=== PATIENT | male | born 1975 ===

== ENCOUNTER 2020-08-25 11:39 | Emergency (ER) | payer MEDICAID, SELFPAY ==
--- NOTE | ~2020-08-25 | XR_ITS ---
EXAMINATION: XR CHEST CLINICAL INFORMATION: Chest pain. COMPARISON: None TECHNIQUE: Frontal view of the chest was obtained. FINDINGS: No significant abnormality is noted involving the heart, lungs, mediastinum, bony thorax or soft tissues. XR/XR chest 1V IMPRESSION: Unremarkable chest exam.
[2020-08-25 11:47] VITALS: BP 131/84; PULSE 95; RESP 18; TEMP 37.1; O2SAT 97; BMI 30.9
--- NOTE | 2020-08-25 11:48 | ECG_ITS ---
Test Reason : CP Blood Pressure : / mmHG Vent. Rate : 090 BPM Atrial Rate : 090 BPM P-R Int : 120 ms QRS Dur : 092 ms QT Int : 358 ms P-R-T Axes : 067 039 038 degrees QTc Int : 437 ms Normal sinus rhythm Normal ECG No previous ECGs available Referred By: Generic ED Physician Electronically Signed By:OMAR GUTIERRES MD
[2020-08-25 12:06] LABS: MANUAL DIFF FLAG NO
[2020-08-25 12:07] LABS: Basophils Absolute Auto 0.1 X10*3/uL (0.0-0.2); Basophils Percent Auto 0.9 % (0-2); Eosinophils Absolute Auto 0.2 X10*3/uL (0.0-0.4); Eosinophils Percent Auto 3.3 % (0-4); Hematocrit 45.5 % (42-52); Hemoglobin 15.2 g/dl (14.0-18.0); Imm Gran Abs Auto 0.03 X10*3/uL (0.00-0.03); Imm Gran Pct Auto 0.5 % (0.0-0.4); Lymphocytes Absolute Auto 1.8 X10*3/uL (1.2-4.9); Lymphocytes Percent Auto 31.5 % (20-40); Mean Corpuscular HGB Conc 33.4 g/dl (31.0-36.0); Mean Corpuscular Hemoglobin 31.1 pg (27.0-33.0); Mean Corpuscular Volume 93.2 fL (80-98); Mean Platelet Volume 9.8 fL (9.4-12.4); Monocytes Absolute Auto 0.5 X10*3/uL (0.1-1.2); Monocytes Percent Auto 9.3 % (2-11); Neutrophils Absolute Auto 3.2 X10*3/uL (2.0-8.3); Neutrophils Percent Auto 54.5 % (45-73); Platelet Count 254 X10*3/uL (160-400); Red Blood Count 4.88 X10*6/uL (4.60-5.80); Red Cell Distribution Width 13.2 % (11.0-16.0); White Blood Count 5.8 X10*3/uL (4.8-10.8)
[2020-08-25 12:39] LABS: Anion Gap 15 (12-20); Blood Urea Nitrogen 8 mg/dL (9-16); Calcium 9.2 mg/dL (8.4-10.2); Carbon Dioxide 22 mmol/L (22-29); Chloride 109 mmol/L (96-108); Creatinine Clr Calc Pharmacy 133.1; Estimated Glomerular Filt Rate > 60; Glucose Random 138 mg/dL (60-115); Potassium 3.8 mmol/L (3.3-5.1); Sodium 142 mmol/L (135-145)
[2020-08-25 12:45] LABS: Troponin-I High Sensitivity < 3.5 ng/L (<3.5-35.0)
[2020-08-25 13:20] VITALS: PULSE 75
[2020-08-25 13:24] VITALS: BP 119/84; PULSE 77; RESP 12; TEMP 36.9; O2SAT 98
--- NOTE | 2020-08-25 13:50 | ED.CHESTPAIN ---
HPI - Chest Pain General Chief Complaint: Chest Pain Stated Complaint: CHEST PAIN Time Seen by Provider: 08/25/20 13:25 Source: patient Mode of arrival: ambulatory Limitations: no limitations History of Present Illness HPI narrative: 45-year-old male who presents emergency department for evaluation of chest pain which started yesterday. Patient states yesterday at around 9:00 a.m. he was at work when he had a sudden onset left-sided chest pressure. He points to his left anterior chest when asked to localize the pain. States the pain is a constant, tightness/squeezing sensation. The pain is worse with movement and with breathing. He states that the pain got worse this morning. He also states he has been having pain in his left arm for about 1 week. He describes the arm pain is a tightness. He denies any neck pain or back pain. He denies associated shortness of breath, dyspnea on exertion, cough, fever or chills. States he does feel fatigued. Denies pain or swelling in his lower extremities. The patient states that he drove to [place] over the weekend (4 days prior to evaluation). He states that it is a [address]. Related Data Allergies Allergy/AdvReac Type Severity Reaction Status Date / Time No Known Allergies Allergy Unverified 12/24/19 16:30 [No Known Allergies*] Review of Systems Review of Systems: Yes all other systems are reviewed and are negative [facility] Past Medical History [facility] Narrative: Patient has a history of fatty liver, he has had a hernia repair in the past. He occasionally takes tramadol for abdominal pain. He smokes 1/2 pack of cigarettes per day times 22 years. He drinks alcohol on the weekends. He states that he smokes marijuana 1-2 times per day. Social History Social History Alcohol intake: never Smoking Status: Current every day smoker Use of substances other than those prescribed or required for medical reasons: Yes Substance Use Type: Marijuana Last Used Substance: Hours (ago) Advance Directives: No Advance Directives Information Provided: Yes Physical Exam Vital Signs: Vital Signs: Last Vital Signs Temp 98.4 F 08/25/20 13:24 Pulse 75 08/25/20 14:51 Resp 14 08/25/20 14:51 BP 126/87 08/25/20 14:51 Pulse Ox 98 08/25/20 14:51 Body Mass Index 30.9 Const: General: cooperative Orientation/consciousness: oriented to person and oriented to place Limitations: no limitations HENMT: Head: Yes normal to inspection, Yes normocephalic and Yes atraumatic Ears: external ears normal General nose exam: Normal external nose present Face and sinus: Yes normal facial exam Mouth: Normal oral and palatal mucosa present Throat: Yes posterior oropharynx normal Eyes: Periorbital: periorbital findings normal Eyelids: Yes eyelids normal Conjunctivae: conjunctivae normal Sclerae: sclerae normal Corneas: corneas normal Pupils: Equal, round and reactive pupils present Direct Ophthalmoscopy: normal light reflex Neck: Neck: Yes full ROM, Yes no lymphadenopathy, Yes no meningeal signs, Yes trachea midline and Yes supple Chest: Chest palpation & inspection: normal inspection of the chest and tenderness (Left anterior chest along costochondral joints) Resp: Effort & Inspection: normal respiratory effort and able to speak in complete sentences Auscultation: clear to auscultation bilaterally Cardio: Rate: regular rate Rhythm: regular rhythm Heart sounds: S1 normal heart sound present, S2 normal heart sound present and no murmurs GI: Inspection: Yes normal to inspection Palpation (GI): Soft to palpation, nontender, no guarding, not rigid and No hepatosplenomegaly present : General: Yes no CVA tenderness Back/Spine/Pelvis: Back: no CVA tenderness Cervical Spine: normal cervical lordosis Thoracic/Lumbar Spine: thoracic and lumbar spine normal to inspection Skin: Lesions: no lesions Rashes: no rashes Wounds: no wounds Neuro: General: oriented to person, oriented to place and no meningeal signs Cranial nerves: Yes CN's II-XII intact bilaterally and Yes Equal, round and reactive pupils present Cognition (Neuro): normal cognition Motor exam (neuro): 5/5 motor strength present throughout Extrem: General: Yes normal to inspection and Yes full ROM Psych: Appearance: well kempt Mental Status: mental status grossly normal Speech and movement: Normal speech and movement present Affect: normal affect Attitude: cooperative Thought process: Normal thought process present Thought content: Normal thought content present Course Course Course Narrative: 45-year-old male who presents emergency department for evaluation of left-sided chest pain x1 day and left arm pain x1 week. The patient did travel to [place] over the weekend which is a [address] Vital signs were normal with no tachycardia, tachypnea and a normal O2 saturation of 99% on room air. Physical examination did reveal left chest wall tenderness along the costochondral joints. Exam was otherwise unremarkable. I ordered a cardiac workup and D-dimer on the patient. He is ordered to get Toradol 30 mg IV for his pain. 1357: Laboratory evaluation revealed a normal CBC and CMP with only an elevated glucose of 138. Troponin was below detectable limits. Chest x-ray revealed no acute process. Twelve EKG was unremarkable. D-dimer was not elevated. 1542: The patient is feeling significantly better after receiving the Toradol. Patient's presentation and evaluation is consistent with costochondritis. Patient was advised to take Tylenol and ibuprofen for pain. He was given a note not return to work until 08/30/2020 MDM - Chest Pain Lab Data Result diagrams: 08/25/20 12:00 08/25/20 12:00 Labs: Lab Results 08/25/20 08/25/20 08/25/20 Range/Units 12:00 12:00 12:00 WBC 5.8 (4.8-10.8) X10*3/uL RBC 4.88 (4.60-5.80) X10*6/uL Hgb 15.2 (14.0-18.0) g/dl Hct 45.5 (42-52) % MCV 93.2 (80-98) fL MCH 31.1 (27.0-33.0) pg MCHC 33.4 (31.0-36.0) g/dl RDW 13.2 (11.0-16.0) % Plt Count 254 (160-400) X10*3/uL MPV 9.8 (9.4-12.4) fL Immature Gran % (Auto) 0.5 H (0.0-0.4) % Neut % (Auto) 54.5 (45-73) % Lymph % (Auto) 31.5 (20-40) % [place] % (Auto) 9.3 (2-11) % Eos % (Auto) 3.3 (0-4) % Baso % (Auto) 0.9 (0-2) % Lymph # (Auto) 1.8 (1.2-4.9) X10*3/uL [place] # (Auto) 0.5 (0.1-1.2) X10*3/uL Eos # (Auto) 0.2 (0.0-0.4) X10*3/uL Baso # (Auto) 0.1 (0.0-0.2) X10*3/uL Abs Immat Gran (auto) 0.03 (0.00-0.03) X10*3/uL Absolute Neuts (auto) 3.2 (2.0-8.3) X10*3/uL Absolute Nucleated RBC 0.000 (0.0-0.012) X10*3/uL Nucleated RBC % (auto) 0.0 (0.0-0.2) /100WBC D-Dimer < 200 NG/ML Hold Blue Top SEE NOTE Sodium 142 (135-145) mmol/L Potassium 3.8 (3.3-5.1) mmol/L Chloride 109 H (96-108) mmol/L Carbon Dioxide 22 (22-29) mmol/L Anion Gap 15 (12-20) BUN 8 L (9-16) mg/dL Creatinine 0.84 (0.5-1.4) mg/dL Estim Creat Clear Calc 133.1 Estimated GFR > 60 Random Glucose 138 H (60-115) mg/dL Calcium 9.2 (8.4-10.2) mg/dL Troponin I High Sens (<3.5-35.0) ng/L 08/25/20 Range/Units 12:00 WBC (4.8-10.8) X10*3/uL RBC (4.60-5.80) X10*6/uL Hgb (14.0-18.0) g/dl Hct (42-52) % MCV (80-98) fL MCH (27.0-33.0) pg MCHC (31.0-36.0) g/dl RDW (11.0-16.0) % Plt Count (160-400) X10*3/uL MPV (9.4-12.4) fL Immature Gran % (Auto) (0.0-0.4) % Neut % (Auto) (45-73) % Lymph % (Auto) (20-40) % [place] % (Auto) (2-11) % Eos % (Auto) (0-4) % Baso % (Auto) (0-2) % Lymph # (Auto) (1.2-4.9) X10*3/uL [place] # (Auto) (0.1-1.2) X10*3/uL Eos # (Auto) (0.0-0.4) X10*3/uL Baso # (Auto) (0.0-0.2) X10*3/uL Abs Immat Gran (auto) (0.00-0.03) X10*3/uL Absolute Neuts (auto) (2.0-8.3) X10*3/uL Absolute Nucleated RBC (0.0-0.012) X10*3/uL Nucleated RBC % (auto) (0.0-0.2) /100WBC D-Dimer NG/ML Hold Blue Top Sodium (135-145) mmol/L Potassium (3.3-5.1) mmol/L Chloride (96-108) mmol/L Carbon Dioxide (22-29) mmol/L Anion Gap (12-20) BUN (9-16) mg/dL Creatinine (0.5-1.4) mg/dL Estim Creat Clear Calc Estimated GFR Random Glucose (60-115) mg/dL Calcium (8.4-10.2) mg/dL Troponin I High Sens < 3.5 (<3.5-35.0) ng/L ECG Data ECG #1: Attestation: I personally reviewed and interpreted this ECG as follows: Interpretation: 1154: Normal sinus rhythm rate of 90, normal ND QRS and QTC intervals, no ST segment elevation, no ST segment depression, no T-wave abnormalities. This is a normal EKG. No old EKG for comparison Discharge Plan Discharge Clinical Impression: Acute costochondritis Patient Disposition: Home, Self-Care Instructions: Costochondritis (ED) Additional Instructions: Your laboratory evaluation was unremarkable. Your chest x-ray was normal. EKG was normal. Your chest pain is consistent with inflammation of the joints of your chest (costochondritis). Take ibuprofen 200 mg pills, 3 pills every 6 hours as needed for pain. Take Tylenol (acetaminophen) 500 mg pills, 2 pills every 6 hours as needed for pain. Follow-up with your doctor in 2 days. Please return to the emergency department if your symptoms get worse or if you develop any symptoms that are concerning to you. Stand Alone Forms: Work/School Release
[2020-08-25 14:06] LABS: D Dimer < 200 NG/ML
[2020-08-25 14:51] VITALS: BP 126/87; PULSE 75; RESP 14; O2SAT 98
[2020-08-25] MEDS: Ketorolac Tromethamine 30 MG/ML VIAL IVPUSH (14:52)
== END 2020-08-25 15:53 | disposition home or self-care (01) ==
PROVIDERS: Emergency Provider Emergency Medicine Emergency Medical Services; PCP Radiology Diagnostic Radiology
DX: M94.0 Chondrocostal junction syndrome [Tietze] (principal); F17.210 Nicotine dependence, cigarettes, uncomplicated; F12.90 Cannabis use, unspecified, uncomplicated
CPT/HCPCS: 36415; 71045; 80048; 84484; 85025; 85379; 93005; 96374; 99284; 99285; J1885

== ENCOUNTER → 2020-10-13 13:36 | Outpatient (BNVA) | payer MEDICAID, SELFPAY | PROVIDERS: PCP Internal Medicine; Visit Provider Internal Medicine Gastroenterology | DX: K76.0 Fatty (change of) liver, not elsewhere classified (principal); R10.9 Unspecified abdominal pain | CPT/HCPCS: 99212 ==

== ENCOUNTER 2020-11-22 11:03 | Emergency (ER) | payer MEDICAID, SELFPAY ==
--- NOTE | ~2020-11-22 | CT_ITS ---
EXAMINATION: CT ABDOMEN AND PELVIS WITHOUT CONTRAST CLINICAL INFORMATION: Right upper quadrant and flank pain; question renal calculus. COMPARISON: Abdominal ultrasound dated 09/21/2019; CT abdomen and pelvis dated 04/06/2019. TECHNIQUE: Multidetector volumetric imaging was performed from the superior aspect of the liver through the pubic symphysis. Sagittal and coronal reformatted images were obtained on the technologist's workstation. This CT examination was performed using dose optimization techniques as appropriate, variously including the following: *Automated exposure control *Adjustment of mA and/or kV according to patient size (this includes techniques or standardized protocols for targeted exams where dose is matched to indication/reason for exam; i.e. extremities or head) *Use of iterative reconstruction technique DLP: 554 mGy-cm FINDINGS: LUNG BASES: The visualized lung bases are unremarkable. LIVER, GALLBLADDER, AND BILIARY TREE: The liver is normal in size, shape, and attenuation. There is a Jarret's lobe configuration. No focal hepatic lesion or biliary ductal dilatation is present. The gallbladder is unremarkable with no evidence of radiopaque gallstones, gallbladder wall thickening, or obvious pericholecystic inflammatory changes. PANCREAS: Unremarkable. SPLEEN: Unremarkable. ADRENAL GLANDS: Unremarkable. KIDNEYS AND URETERS: The kidneys are normal in size, shape, and attenuation. No hydronephrosis, hydroureter, or calculi seen. No perinephric stranding. BLADDER: Unremarkable. GASTROINTESTINAL TRACT: There is mild diverticulosis, without acute diverticulitis. No bowel obstruction, free intraperitoneal air or abscess is seen. The vermiform appendix appears normal. No focal bowel wall thickening is seen. ABDOMINAL WALL: There is a tiny fat-containing umbilical hernia. There is a small fat-containing left inguinal hernia. LYMPH NODES: There are shotty, nonpathologically enlarged mesenteric, bilateral iliac chain and inguinal lymph nodes. No sizable abdominopelvic lymphadenopathy is seen. VASCULAR: Unremarkable. PELVIC VISCERA: Unremarkable. OSSEOUS STRUCTURES: There is a rudimentary T12 right rib (2:14 and 4:75). No T12 left rib is seen. There are 5 lumbar type vertebra which do not bear any rib. At L4-L5, there is degenerative disc disease, with vacuum phenomenon. There is a rudimentary disc space at L5-S1. There is mild anterior spondylosis of the L3 upper endplate. No acute or aggressive osseous abnormality is seen. CT/CT abdomen pelvis wo con IMPRESSION: 1. No urinary calculus or obstructive uropathy is seen bilaterally. 2. There is mild diverticulosis, without acute diverticulitis. No bowel obstruction, free intraperitoneal air or abscess is seen. There is no appendicitis. 3. No abdominopelvic mass, free fluid or lymphadenopathy is seen. 4. There is degenerative disc disease at L4-L5. 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
[2020-11-22 11:52] VITALS: BP 126/80; PULSE 67; RESP 18; TEMP 37.1; O2SAT 100; BMI 27.0
[2020-11-22 14:15] LABS: MANUAL DIFF FLAG NO
[2020-11-22 14:17] LABS: Basophils Absolute Auto 0.1 X10*3/uL (0.0-0.2); Basophils Percent Auto 0.8 % (0-2); Eosinophils Absolute Auto 0.1 X10*3/uL (0.0-0.4); Eosinophils Percent Auto 1.8 % (0-4); Hematocrit 44.8 % (42-52); Hemoglobin 14.7 g/dl (14.0-18.0); Imm Gran Abs Auto 0.02 X10*3/uL (0.00-0.03); Imm Gran Pct Auto 0.3 % (0.0-0.4); Lymphocytes Absolute Auto 2.3 X10*3/uL (1.2-4.9); Lymphocytes Percent Auto 30.7 % (20-40); Mean Corpuscular HGB Conc 32.8 g/dl (31.0-36.0); Mean Corpuscular Hemoglobin 31.7 pg (27.0-33.0); Mean Corpuscular Volume 96.6 fL (80-98); Mean Platelet Volume 10.1 fL (9.4-12.4); Monocytes Absolute Auto 0.7 X10*3/uL (0.1-1.2); Monocytes Percent Auto 9.5 % (2-11); Neutrophils Absolute Auto 4.3 X10*3/uL (2.0-8.3); Neutrophils Percent Auto 56.9 % (45-73); Platelet Count 219 X10*3/uL (160-400); Red Blood Count 4.64 X10*6/uL (4.60-5.80); Red Cell Distribution Width 13.1 % (11.0-16.0); White Blood Count 7.6 X10*3/uL (4.8-10.8)
--- NOTE | 2020-11-22 14:29 | ED.ABDPAIN ---
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 Patient was seen by abrasive band winder last month plan to have CT scan in next month. Patient denies any vomiting or diarrhea complaining of chronic nausea no urinary complaints no fever or chills no relation with food pain radiated from the right upper quadrant to right flank area Related Data Previous Rx's Medication Instructions Recorded tramadol 50 mg tablet 50 mg PO Q6H PRN #20 tab 11/22/20 Allergies Allergy/AdvReac Type Severity Reaction Status Date / Time No Known Allergies Allergy Verified 10/13/20 13:45 [No Known Allergies*] Review of Systems Review of Systems Yes all other systems are reviewed and are negative Physical Exam Vital Signs: Vital Signs: Last Vital Signs Temp 98.7 F 11/22/20 11:52 Pulse 67 11/22/20 11:52 Resp 16 11/22/20 15:04 BP 126/80 11/22/20 11:52 Pulse Ox 100 11/22/20 11:52 Body Mass Index 27.0 Appearance: Alert. Oriented X3. No acute distress. Eyes: PERRLA, No Nystagmus ENT: Pharynx normal. Oral Mucosa moist Neck: Normal inspection. Neck supple. CVS: Normal heart rate and rhythm. Pulses normal. Respiratory: No respiratory distress. Equal air entry bilateral, no wheezing/rales/rhonchi Abdomen: Soft and tender right upper quadrant no rebound tenderness or guarding, Bowel sounds are present, no mass palpable, right CVA tenderness + Skin: Skin warm and dry. Normal skin color. Normal skin turgor. Extremities: No lower extremity edema. No calf tenderness Neuro: Oriented X 3. No motor deficit. No sensory deficit.No cerebellar signs , cranial nerves II-XII intact MDM - Abdominal Pain MDM Narrative Medical decision making narrative: Patient with nonspecific right upper quadrant pain previous ultrasound negative for gallstones with new CT scan to rule out any new pathology as per abrasive band winder labs are stable , LFTs are normal CT scan abdomen is negative will discharge patient home Medical Records Attestation: I reviewed the patient's medical records. Lab Data Attestation: I reviewed the patient's lab results. Result diagrams: 11/22/20 14:05 11/22/20 14:05 Labs: Lab Results 11/22/20 11/22/20 Range/Units 14:05 14:05 WBC 7.6 (4.8-10.8) X10*3/uL RBC 4.64 (4.60-5.80) X10*6/uL Hgb 14.7 (14.0-18.0) g/dl Hct 44.8 (42-52) % MCV 96.6 (80-98) fL MCH 31.7 (27.0-33.0) pg MCHC 32.8 (31.0-36.0) g/dl RDW 13.1 (11.0-16.0) % Plt Count 219 (160-400) X10*3/uL MPV 10.1 (9.4-12.4) fL Immature Gran % (Auto) 0.3 (0.0-0.4) % Neut % (Auto) 56.9 (45-73) % Lymph % (Auto) 30.7 (20-40) % [place] % (Auto) 9.5 (2-11) % Eos % (Auto) 1.8 (0-4) % Baso % (Auto) 0.8 (0-2) % Lymph # (Auto) 2.3 (1.2-4.9) X10*3/uL [place] # (Auto) 0.7 (0.1-1.2) X10*3/uL Eos # (Auto) 0.1 (0.0-0.4) X10*3/uL Baso # (Auto) 0.1 (0.0-0.2) X10*3/uL Abs Immat Gran (auto) 0.02 (0.00-0.03) X10*3/uL Absolute Neuts (auto) 4.3 (2.0-8.3) X10*3/uL Absolute Nucleated RBC 0.000 (0.0-0.012) X10*3/uL Nucleated RBC % (auto) 0.0 (0.0-0.2) /100WBC Sodium 139 (135-145) mmol/L Potassium 5.1 D (3.3-5.1) mmol/L Chloride 106 (96-108) mmol/L Carbon Dioxide 23 (22-29) mmol/L Anion Gap 15 (12-20) BUN 10 (9-16) mg/dL Creatinine 0.82 (0.5-1.4) mg/dL Estim Creat Clear Calc 123.7 Estimated GFR > 60 Random Glucose 90 (60-115) mg/dL Calcium 9.6 (8.4-10.2) mg/dL Total Bilirubin 0.2 (0.0-1.0) mg/dL Direct Bilirubin 0.2 (0.0-0.5) mg/dL AST 29 (5-37) U/L ALT 28 (0-40) U/L Alkaline Phosphatase 93 (39-117) U/L Total Protein 7.8 (6.5-8.0) g/dL Albumin 4.6 (3.5-5.0) g/dL Lipase 31 (8-78) U/L Discharge Plan Discharge Clinical Impression: Abdominal pain Qualifiers: Abdominal location: right upper quadrant Qualified Code(s): R10.11 - Right upper quadrant pain Patient Disposition: Home, Self-Care Instructions: Abdominal Pain (ED) Additional Instructions: Continue diet restrictions as advised. Follow-up with your abrasive band winder. A CT scan is negative for any acute pathology Tramadol for severe pain Prescriptions: New tramadol 50 mg tablet 50 mg PO Q6H PRN (Reason: pain) Qty: 20 RF: 0 Stand Alone Forms: Work/School Release PMFSH Past Medical History Surgical History H/O hernia repair Family History Family History Mother Diabetes Social History Social History Household Members: Spouse Alcohol intake: never Patient Tobacco Use Status: Current everyday Tobacco user Tobacco use type: Cigarette Use of substances other than those prescribed or required for medical reasons: No Substance Use Type: Marijuana Advance Directives: No Advance Directives Information Provided: No
[2020-11-22 14:42] LABS: Anion Gap 15 (12-20); Blood Urea Nitrogen 10 mg/dL (9-16); Calcium 9.6 mg/dL (8.4-10.2); Carbon Dioxide 23 mmol/L (22-29); Chloride 106 mmol/L (96-108); Creatinine Clr Calc Pharmacy 123.7; Estimated Glomerular Filt Rate > 60; Glucose Random 90 mg/dL (60-115); Potassium 5.1 mmol/L (3.3-5.1); Sodium 139 mmol/L (135-145)
[2020-11-22 15:00] LABS: Alanine Aminotransferase 28 U/L (0-40); Albumin Level 4.6 g/dL (3.5-5.0); Alkaline Phosphatase 93 U/L (39-117); Aspartate Amino Transferase 29 U/L (5-37); Lipase 31 U/L (8-78); Total Protein 7.8 g/dL (6.5-8.0)
[2020-11-22 15:04] VITALS: RESP 16
[2020-11-22] MEDS: 0.9 % Sodium Chloride 1,000 ML 999 ML IVCONT (15:04)
[2020-11-22] MEDS: Morphine Sulfate 4 MG/ML CARTRIDGE IVPUSH (15:04)
[2020-11-22] MEDS: ondansetron HCL 4 MG/2 ML VIAL IVPUSH (15:04)
[2020-11-22 15:11] LABS: Bilirubin Direct 0.2 mg/dL (0.0-0.5); Bilirubin Total 0.2 mg/dL (0.0-1.0)
== END 2020-11-22 16:04 | disposition home or self-care (01) ==
PROVIDERS: Emergency Provider Internal Medicine
DX: R10.11 Right upper quadrant pain (principal); K76.0 Fatty (change of) liver, not elsewhere classified
CPT/HCPCS: 36415; 74176; 80048; 80076; 83690; 85025; 96361; 96374; 96375; 99284; J2270; J2405

== ENCOUNTER 2020-12-06 09:46 | Emergency (ER) | payer MEDICAID, SELFPAY ==
[2020-12-06 10:43] VITALS: BP 135/93; PULSE 86; RESP 18; TEMP 37.2; O2SAT 99; BMI 27.1
--- NOTE | 2020-12-06 10:50 | ED.URI ---
HPI - URI/Sore Throat General Chief Complaint: General Medical Stated Complaint: multiple complaints post vaccine Time Seen by Provider: 12/06/20 09:51 Source: patient Mode of arrival: ambulatory Limitations: no limitations History of Present Illness MD elicited complaint: sore throat, rhinorrhea and other (body aches) Pertinent past history: other (received Moderna on Saturday ) Onset (ago): day(s) (4 ) Consistency: constant Severity: moderate Description of mucous: clear Able to tolerate fluids by mouth: Yes Exacerbating factors: swallowing Relieving factors: nothing Context: other (symptoms post COVID vaccine ) Associated symptoms: chills, myalgias, rhinorrhea and sore throat Treatments prior to arrival: ibuprofen Related Data Previous Rx's Medication Instructions Recorded tramadol 50 mg tablet 50 mg PO Q6H PRN #20 tab 11/22/20 amoxicillin 875 mg-potassium 1 tab PO BID #14 tab 12/06/20 clavulanate 125 mg tablet (Augmentin) Allergies Allergy/AdvReac Type Severity Reaction Status Date / Time No Known Allergies Allergy Verified 10/13/20 13:45 [No Known Allergies*] Review of Systems Review of Systems: Constitutional : no Fever, positive Chills, positive fatigue, positive Malaise ENT/Mouth : positive sore throat, positive runny nose Eyes: No Discharge Cardiovascular : No Chest Pain, No SOB Respiratory : No Cough, No Sputum Gastrointestinal : No Nausea, No Vomiting, No Diarrhea Genitourinary : No Dysuria, No Urinary Frequency Musculoskeletal : positive Myalgia Skin : No rash Neuro : No Headache PMFSH Past Medical History Attestation statement: The following information was validated with the patient. Medical History Nonalcoholic fatty liver disease without nonalcoholic steatohepatitis (JULIAN) Surgical History H/O hernia repair Family History Family History Mother Diabetes Social History Social History Household Members: Spouse Alcohol intake: never Patient Tobacco Use Status: Current everyday Tobacco user Tobacco use type: Cigarette Substance Use Type: Marijuana Advance Directives: No Advance Directives Information Provided: No Physical Exam Vital Signs: Vital Signs: Last Vital Signs Temp 99.0 F 12/06/20 10:43 Pulse 86 12/06/20 10:43 Resp 18 12/06/20 10:43 BP 135/93 H 12/06/20 10:43 Pulse Ox 99 12/06/20 10:43 Body Mass Index 27.1 Appearance: Alert. Oriented X3. No acute distress. Eyes: Pupils equal, round and reactive to light. ENT: + swelling mild and erythema of uvula, normal tonsils no exudates, uvula is midline tolerating saliva without issue normal voice Neck: Normal inspection. Neck supple. CVS: Normal heart rate and rhythm. Pulses normal. Respiratory: No respiratory distress. Breath sounds normal. Abdomen: Soft and non-tender. Skin: Skin warm and dry. Normal skin color. Normal skin turgor. Extremities: No lower extremity edema. No calf ttp Neuro: Oriented X 3. No motor deficit. No sensory deficit. Course Course Course Narrative: negative workup stable for DC MDM - URI/Sore Throat MDM Narrative Medical decision making narrative: 45 yo male with URI symptoms and sore throat post Moderna vaccine on Saturday - at this time he possibly has uvulitis - will obtain COVID, strep swab, treat symptoms, given uvulitis will need amoxicillin on DC, did discuss with him that he is also likely having a typical reaction post vaccine with body aches and not feeling well. Lab Data Labs: Lab Results 12/06/20 12/06/20 Range/Units 11:02 11:03 COVID-19 ([facility]) Negative (Negative) COVID-19 Clin Com See Note S. pyogenes GrpA LUIS M Negative (Negative) Discharge Plan Discharge Clinical Impression: Uvulitis Patient Disposition: Home, Self-Care Instructions: Uvulitis (ED) Additional Instructions: return to ED for any worsening symptoms or concerns negative for COVID Prescriptions: New amoxicillin-pot clavulanate [Augmentin] 875-125 mg tablet 1 tab PO BID Qty: 14 RF: 0 No Action tramadol 50 mg tablet 50 mg PO Q6H PRN (Reason: pain) Qty: 20 RF: 0 Referrals: [place],[facility] [Primary Care Provider] - 2 days (if not better) Stand Alone Forms: Work/School Release
[2020-12-06 11:33] LABS: IDNOW Serial# 08D9AD1C; Strep A Nucleic Acid Negative (Negative)
[2020-12-06 11:33] LABS: COVID-19 Test Negative (Negative); IDNOW Serial# 9DD0AD1C
[2020-12-06] MEDS: Lidocaine HCl Viscous 2 % 15 ML SOLUTION MUCOUS MEM (11:49)
[2020-12-06] MEDS: Acetaminophen 325 MG TABLET 975 MG PO (11:49)
== END 2020-12-06 11:56 | disposition home or self-care (01) ==
PROVIDERS: Emergency Provider Emergency Medicine
DX: K12.2 Cellulitis and abscess of mouth (principal); Z20.822 Contact with and (suspected) exposure to COVID-19; J02.9 Acute pharyngitis, unspecified; M79.10 Myalgia, unspecified site
CPT/HCPCS: 36415; 87635; 87651; 99283

== ENCOUNTER 2021-04-03 06:52 | Emergency (ER) | payer MEDICAID, SELFPAY ==
--- NOTE | ~2021-04-03 | XR_ITS ---
EXAMINATION: XR CHEST CLINICAL INFORMATION: Rib fractures. COMPARISON: 08/25/2020 portable chest. 12/26/[address] scan. TECHNIQUE: 2 views of the chest were obtained. FINDINGS: No significant abnormality is noted involving the heart, lungs, mediastinum, bony thorax or soft tissues. XR/XR chest 2V IMPRESSION: No acute cardiopulmonary process.
--- NOTE | ~2021-04-03 | CT_ITS ---
EXAMINATION: CT CHEST WITHOUT CONTRAST CLINICAL INFORMATION: Status post fall. Left-sided chest pain. COMPARISON: Chest x-ray of 04/03/2021, 08/25/2020, 05/30/2018. Chest CT of 12/26/2016. TECHNIQUE: Multidetector volumetric CT imaging of the chest was done. Axial MIP volume rendering provided. Sagittal and coronal reformatted images were obtained. This CT examination was performed using dose optimization techniques as appropriate, variously including the following: *Automated exposure control *Adjustment of mA and/or kV according to patient size (this includes techniques or standardized protocols for targeted exams where dose is matched to indication/reason for exam; i.e. extremities or head) *Use of iterative reconstruction technique DLP: 377 mGy-cm FINDINGS: Multiple respiratory motion artifacts are noted on several of the images somewhat limiting the evaluation. IDENTITY MANAGEMENT DEVELOPER: Unremarkable. LUNGS: The lungs are clear with no evidence of inflammation or nodules. Streaky atelectasis is noted at the right lung base. Mild dependent atelectasis at the left lung base. MEDIASTINUM: The mediastinum is normal. Small hiatal hernia. PLEURA: There is no pleural effusion. No pleural mass or thickening. AXILLA: No lymphadenopathy. UPPER ABDOMEN: A 0.5 cm low-attenuation in the hepatic segment 2 (series 2 image 58) is too small to characterize accurately. Note is made of small right-sided Bochdalek hernia. OSSEOUS STRUCTURES: Mild motion artifacts limit evaluation, however, no definite fractures are noted. No acute or suspicious osseous abnormality. Multilevel mild degenerative changes in the spine. CT/CT chest wo con IMPRESSION: No evidence of left-sided rib fracture, pneumothorax or pleural effusion. Minimal bibasilar atelectasis. Small hiatal hernia.
[2021-04-03 07:10] VITALS: BP 126/84; PULSE 86; RESP 20; TEMP 36.5; O2SAT 98; BMI 25.7
--- NOTE | 2021-04-03 10:17 | ED_ITS ---
HPI - General Adult General Chief complaint: General Medical Stated complaint: L side pain S/P fall ?Broken Rib Time Seen by Provider: 04/03/21 09:58 Source: patient Mode of arrival: ambulatory Limitations: no limitations History of Present Illness HPI narrative: 45-year-old male here after slip and fall on Saturday morning and ice. Patient tells me he slipped falling on his left side. There was no head strike or loss of consciousness. He is here complaining of left hip pain, left chest wall pain, mid back pain. Taking Tylenol with continued symptoms. No headache, vision changes, vomiting, neck pain, difficulty breathing. Related Data Previous Rx's Medication Instructions Recorded tramadol 50 mg tablet 50 mg PO Q6H PRN #20 tab 11/22/20 amoxicillin 875 mg-potassium 1 tab PO BID #14 tab 12/06/20 clavulanate 125 mg tablet (Augmentin) cyclobenzaprine 10 mg tablet 10 mg PO TID PRN #15 tab 04/03/21 lidocaine 5 % topical patch 1 patch TOPICAL DAILY #15 ea 04/03/21 (Lidoderm) naproxen 500 mg tablet 500 mg PO BID PRN #30 tab 04/03/21 Allergies Allergy/AdvReac Type Severity Reaction Status Date / Time No Known Allergies Allergy Verified 10/13/20 13:45 [No Known Allergies*] Review of Systems Review of Systems: Yes all other systems are reviewed and are negative Constitutional: Constitutional: Reports no additional constitutional complaints, Denies body ache(s), Denies chills, Denies fever(s), Denies headache(s) and Denies weakness Eyes: Eyes: Reports no additional eye complaints and Denies change in vision ENT: Reports system reviewed and no additional complaints, except as documented, Denies dizziness, Denies headache(s), Denies nasal congestion, Denies nasal discharge and Denies neck pain Cardiovascular: Cardiovascular: Reports no additional cardiovascular complaints, Reports chest pain, Denies leg edema and Denies dyspnea Respiratory: Respiratory: Reports no additional respiratory complaints, Denies cough and Denies dyspnea Gastrointestinal: Gastrointestinal: Reports no additional gastrointestinal complaints, Denies abdominal pain, Denies diarrhea, Denies nausea and Denies vomiting Genitourinary: Genitourinary: Denies urinary incontinence Musculoskeletal: Musculoskeletal: Reports no additional musculoskeletal complaints, Reports back pain, Reports arthralgias, Denies joint swelling, Denies neck pain, Denies numbness and Denies tingling Integumentary/Breasts: Skin/Breast: Reports system reviewed and no additional complaints, except as docu and Denies rash Neurologic: Reports system reviewed and no additional complaints, except as documented, Denies Abnormal speech present, Denies dizziness, Denies headache(s), Denies numbness, Denies tingling and Denies weakness PMF Past Medical History Attestation statement: The following information was validated with the patient. Source: old records reviewed and nursing notes reviewed Medical History Nonalcoholic fatty liver disease without nonalcoholic steatohepatitis (JULIAN) Surgical History H/O hernia repair Family History Family History Mother Diabetes Social History Social History Household Members: Spouse Alcohol intake: never Patient Tobacco Use Status: Current everyday Tobacco user Tobacco use type: Cigarette Substance Use Type: Marijuana Advance Directives: No Advance Directives Information Provided: No Physical Exam Vital Signs: Vital Signs: Last Vital Signs Temp 97.7 F 04/03/21 07:10 Pulse 74 04/03/21 10:32 Resp 16 04/03/21 10:32 BP 119/86 04/03/21 10:32 Pulse Ox 97 04/03/21 10:32 BMI result Body Mass Index 25.7 Const: General: cooperative, healthy appearing, comfortable and no acute distress Orientation/consciousness: patient oriented x3 Limitations: no limitations HENMT: Head: Yes normal to inspection Ears: hearing grossly normal bilaterally and TM's normal bilaterally General nose exam: Normal external nose present Face and sinus: Yes normal facial exam Mouth: Normal oral and palatal mucosa present Throat: Yes posterior oropharynx normal, Yes tonsils normal and Yes uvula midline Eyes: General: appearance normal, both eyes and all related structures Pupils: Equal, round and reactive pupils present Neck: Neck: Yes normal visual inspection, Yes full ROM, Yes no lymphadenopathy and Yes no meningeal signs Chest: Other: Left posterior chest wall pain with small area of ecchymosis. There is tenderness. No crepitus or chest wall deformity. Chest palpation & inspection: normal inspection of the chest Resp: Effort & Inspection: normal respiratory effort Auscultation: clear to auscultation bilaterally Cardio: Rate: regular rate Rhythm: regular rhythm Peripheral pulses: Peripheral pulses 2+ throughout GI: Inspection: Yes normal to inspection Palpation (GI): Soft to palpation and nontender Auscultation: normal bowel sounds Back/Spine/Pelvis: Other: Tenderness over the midthoracic spine with small area of ecchymosis. No step-offs or deformities. Pain is worsened with flexion and extension of the spine and movement with a palpable muscle spasm noted. Thoracic/Lumbar Spine: thoracic and lumbar spine normal to inspection Skin: General skin exam: no rashes or lesions noted Neuro: General: patient oriented x3, no meningeal signs, no focal motor deficits and normal sensation to monofilament Cranial nerves: Yes CN's II-XII intact bilaterally, Yes Equal, round and reactive pupils present, Yes Bilaterally intact EOM present, Yes Nystagmus not present and Yes Normal facial strength present Cognition (Neuro): normal cognition Speech: No Abnormal speech present Gait exam (Neuro): Normal gait present Motor exam (neuro): 5/5 motor strength present throughout Extrem: Other: Small area of ecchymosis noted over the lateral hip with full range of motion. Patient is ambulatory on the side with no difficulty General: Yes normal to inspection Course Course Course Narrative: 45-year-old male here with complaints of left hip pain, left posterior chest wall pain and back pain after a slip and fall on morning. No head strike or loss of consciousness poor. Normal neurological exam. He does have a small area of ecchymosis of left hip with full range of motion of the hip in his ambulatory and at side to less likely acute fracture. He does have some tenderness over his midthoracic spine and posterior left chest wall so will check CT chest. 1145-CT chest shows no acute finding. Likely contusion. Reviewed findings with patient. He is feeling better after receiving Toradol and Valium. Reviewed worrisome signs and symptoms and when to return to the emergency department. Comfortable discharge home. Medical Decision Making Medical Records Medical records reviewed: Yes I reviewed the patient's medical records. Lab Data Lab results reviewed: Yes I reviewed the patient's lab results. Imaging Data Chest x-ray: Attestation: I personally reviewed and interpreted this imaging study as follows: Radiologist's impression: EXAMINATION: XR CHEST CLINICAL INFORMATION: Rib fractures. COMPARISON: 08/25/2020 portable chest. 12/26/[address] scan. TECHNIQUE: 2 views of the chest were obtained. FINDINGS: No significant abnormality is noted involving the heart, lungs, mediastinum, bony thorax or soft tissues. XR/XR chest 2V IMPRESSION: No acute cardiopulmonary process.? ? ? CT scan - chest: Attestation: I personally reviewed and interpreted this imaging study as follows: Radiologist's impression: FINDINGS: Multiple respiratory motion artifacts are noted on several of the images somewhat limiting the evaluation. COLOR CONSULTANT: Unremarkable. LUNGS: The lungs are clear with no evidence of inflammation or nodules. Streaky atelectasis is noted at the right lung base. Mild dependent atelectasis at the left lung base. MEDIASTINUM: The mediastinum is normal. Small hiatal hernia. PLEURA: There is no pleural effusion. No pleural mass or thickening.? AXILLA: No lymphadenopathy.? UPPER ABDOMEN: A 0.5 cm low-attenuation in the hepatic segment 2 (series 2 image 58) is too small to characterize accurately. Note is made of small right-sided Bochdalek hernia. OSSEOUS STRUCTURES: Mild motion artifacts limit evaluation, however, no definite fractures are noted. No acute or suspicious osseous abnormality. Multilevel mild degenerative changes in the spine. CT/CT chest wo con IMPRESSION: No evidence of left-sided rib fracture, pneumothorax or pleural effusion. Minimal bibasilar atelectasis.? ? Small hiatal hernia. Discharge Plan Discharge Clinical Impression: Contusion of rib on left side, Back contusion, Contusion of hip, left Patient Disposition: Home, Self-Care Instructions: Contusion in Adults (ED), Hip Contusion (ED), Rib Contusion (ED) Additional Instructions: X-ray and CT scan show no broken bones. These are contusion Ice to the area Gentle stretching No heavy lifting or bending Prescriptions: New lidocaine [Lidoderm] 5 % adhesive patch,medicated 1 patch topical DAILY Qty: 15 RF: 0 cyclobenzaprine 10 mg tablet 10 mg PO TID PRN (Reason: muscle spasm) Qty: 15 RF: 0 naproxen 500 mg tablet 500 mg PO BID PRN (Reason: pain) Qty: 30 RF: 0 No Action tramadol 50 mg tablet 50 mg PO Q6H PRN (Reason: pain) Qty: 20 RF: 0 amoxicillin-pot clavulanate [Augmentin] 875-125 mg tablet 1 tab PO BID Qty: 14 RF: 0 Referrals: [place],[facility] [Primary Care Provider] - 2 days Stand Alone Forms: Work/School Release
[2021-04-03] MEDS: Ketorolac Tromethamine 60 MG/2 ML VIAL IM (10:28)
[2021-04-03] MEDS: diazePAM 5 MG TABLET 10 MG PO (10:29)
[2021-04-03 10:32] VITALS: BP 119/86; PULSE 74; RESP 16; O2SAT 97
== END 2021-04-03 12:13 | disposition home or self-care (01) ==
PROVIDERS: Emergency Provider Emergency Medicine
DX: S70.02XA Contusion of left hip, initial encounter (principal); S20.212A Contusion of left front wall of thorax, initial encounter; S20.229A Contusion of unspecified back wall of thorax, initial encounter; W00.0XXA Fall on same level due to ice and snow, initial encounter; Y93.9 Activity, unspecified; Y92.9 Unspecified place or not applicable; Y99.9 Unspecified external cause status
CPT/HCPCS: 71046; 71250; 96372; 99284; J1885

== ENCOUNTER 2022-04-15 20:29 | Emergency (ER) | payer OTHER, SELFPAY ==
--- NOTE | ~2022-04-15 | CT_ITS ---
EXAMINATION: CT HEAD WITHOUT CONTRAST CLINICAL INFORMATION: Chest pain and paresthesias. COMPARISON: CT head 12/26/2016. TECHNIQUE: Contiguous axial imaging was performed from the skull base to vertex without intravenous administration of contrast. This CT examination was performed using dose optimization techniques as appropriate, variously including the following: *Automated exposure control *Adjustment of mA and/or kV according to patient size (this includes techniques or standardized protocols for targeted exams where dose is matched to indication/reason for exam; i.e. extremities or head) *Use of iterative reconstruction technique DLP: 646 mGy-cm FINDINGS: There is no evidence of acute intracranial hemorrhage or edematous territorial infarction. There is no abnormal attenuation within the brain parenchyma. Nayak-white matter differentiation is preserved. The ventricles are normal in size and configuration. No evidence for obstructive hydrocephalus. No abnormal mass effect or midline shift. No extra-axial fluid collections. No acute soft tissue or osseous abnormalities. Partial opacification of ethmoid air cells. The mastoids and middle ear cavities are clear. CT/CT head/brain wo IV con IMPRESSION: No evidence of acute intracranial hemorrhage or edematous territorial infarction.
--- NOTE | ~2022-04-15 | XR_ITS ---
EXAMINATION: XR CHEST CLINICAL INFORMATION: Chest pain/paresthesia COMPARISON: 04/03/2021 TECHNIQUE: AP portable upright view of the chest FINDINGS: Lungs are clear. No consolidation, pneumothorax, or pleural effusion. Cardiac and mediastinal contours are normal. Pulmonary vasculature is unremarkable. Osseous structures are unremarkable. XR/XR chest 1V IMPRESSION: No acute cardiopulmonary findings
[2022-04-15 20:33] VITALS: BP 142/88; PULSE 98; RESP 20; TEMP 36.6; O2SAT 95; BMI 26.4
--- NOTE | 2022-04-15 20:34 | ED.GENADULT ---
HPI - General Adult General Chief complaint: Chest Pain <LONNIE Hoover - Last Filed: 04/15/22 20:39> Stated complaint: chest pain, arm/facial numbness <LONNIE Hoover - Last Filed: 04/15/22 20:39> Time Seen by Provider: 04/15/22 20:48 <LONNIE Hoover - Last Filed: 04/15/22 20:39> Source: patient <Loren Arreola NP - Last Filed: 04/15/22 22:50> Mode of arrival: ambulatory <Loren Arreola NP - Last Filed: 04/15/22 22:50> Limitations: no limitations <Loren Arreola NP - Last Filed: 04/15/22 22:50> History of Present Illness HPI narrative: 46-year-old male presents with multiple complaints, including mid substernal chest pain, pain to the left arm, left-sided facial numbness and arm numbness, blurred vision, leg weakness, nausea, vomiting, and diarrhea. States that the symptoms started at 02:00 today. <Loren Arreola NP - Last Filed: 04/15/22 22:50> Onset (ago): day(s) (1) <Loren Arreola NP - Last Filed: 04/15/22 22:50> Location: head, face, chest, left and upper extremity <Loren Arreola NP - Last Filed: 04/15/22 22:50> Radiation: non-radiation <Loren Arreola NP - Last Filed: 04/15/22 22:50> Severity: moderate <Loren Arreola NP - Last Filed: 04/15/22 22:50> Severity scale (1-10): 5 <Loren Arreola NP - Last Filed: 04/15/22 22:50> Quality: aching <Loren Arreola NP - Last Filed: 04/15/22 22:50> Pain Consistency: constant <Loren Arreola NP - Last Filed: 04/15/22 22:50> Relieving factors: none <TEMI Ledezma Last Filed: 04/15/22 22:50> Exacerbating factors: movement <TEMI Ledezma Last Filed: 04/15/22 22:50> Associated symptoms: denies other symptoms <TEMI Ledezma Last Filed: 04/15/22 22:50> Treatments prior to arrival: none <TEMI Ledezma Last Filed: 04/15/22 22:50> Related Data Home medications: Previous Rx's Medication Instructions Recorded tramadol 50 mg tablet 50 mg PO Q6H PRN pain #20 tabs 11/22/20 amoxicillin 875 mg-potassium 1 tab PO BID #14 tabs 12/06/20 clavulanate 125 mg tablet (Augmentin) cyclobenzaprine 10 mg tablet 10 mg PO TID PRN muscle spasm #15 04/03/21 tabs lidocaine 5 % topical patch 1 patch topical DAILY #15 ea 04/03/21 (Lidoderm) naproxen 500 mg tablet 500 mg PO BID PRN pain #30 tabs 04/03/21 <LONNIE Hoover Last Filed: 04/15/22 20:39> Allergies/adverse reactions: Allergies Allergy/AdvReac Type Severity Reaction Status Date / Time No Known Allergies Allergy Verified 04/15/22 20:38 [No Known Allergies*] <LONNIE Hoover Last Filed: 04/15/22 20:39> Review of Systems Review of Systems: Constitutional: No Fever, No Chills Cardiovascular: Positive Chest Pain, No SOB Respiratory: No Cough, No Dyspnea Gastrointestinal: No Nausea, No Vomiting, No Diarrhea, No abdominal Pain Genitourinary: No Dysuria, No Hematuria Musculoskeletal: No joint pain, No Myalgias, No Joint Swelling Skin: No Skin lacerations, No rash Neuro: Mikhail Weakness, positive facial left arm Numbness, positive Paresthesias, No Loss of Consciousness, No Dizziness, positive Headache <TEMI Ledezma Last Filed: 04/15/22 22:50> Yes all other systems are reviewed and are negative <TEMI Ledezma Last Filed: 04/15/22 22:50> [facility] Past Medical History Attestation statement: The following information was validated with the patient. 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 steatohepatitis (JULIAN) <LONNIE Hoover - Last Filed: 04/15/22 20:39> Surgical History: Surgical History H/O hernia repair <LONNIE Hoover - Last Filed: 04/15/22 20:39> Family History Family History: Family History Mother Diabetes <LONNIE Hoover - Last Filed: 04/15/22 20:39> Social History Social History: Social History Household Members: Spouse Alcohol intake: never Patient Tobacco Use Status: Current everyday Tobacco user Tobacco use type: Cigarette Smoked in Last 30 Days: Yes Use of substances other than those prescribed or required for medical reasons: No Substance Use Type: Marijuana Advance Directives: No Advance Directives Information Provided: No <LONNIE Hoover - Last Filed: 04/15/22 20:39> Physical Exam ED Vital Signs: Vital Signs - 24 hr 04/15/22 20:33 04/15/22 21:04 Temperature 97.8 F Pulse Rate 98 83 Respiratory Rate 20 15 Blood Pressure 142/88 H 148/88 H Pulse Oximetry 95 96 Oxygen Delivery Method Room Air Room Air BMI result Body Mass Index 26.4 <LONNIE Hoover - Last Filed: 04/15/22 20:39> Vital Signs - 24 hr 04/15/22 20:33 04/15/22 21:04 Temperature 97.8 F Pulse Rate 98 83 Respiratory Rate 20 15 Blood Pressure 142/88 H 148/88 H Pulse Oximetry 95 96 Oxygen Delivery Method Room Air Room Air BMI result Body Mass Index 26.4 <Loren Arreola NP - Last Filed: 04/15/22 22:50> Appearance: Alert. Oriented X3. No acute distress. Eyes: Pupils equal, round and reactive to light. ENT: Pharynx normal. Neck: Normal inspection. Neck supple. CVS: Normal heart rate and rhythm. Pulses normal. Respiratory: No respiratory distress. Breath sounds normal. Abdomen: Soft and nontender. Skin: Skin warm and dry. Normal skin color. Normal skin turgor. Extremities: No lower extremity edema. Moves all extremities against resistance. Gait well balance were coordinated. Neuro: No motor deficit. No sensory deficit. Cranial nerves 2-12 intact. <Loren Arreola NP - Last Filed: 04/15/22 22:50> Course Course Course Narrative: RME-20:35PM - 46yoM presenting to the ED c c/o of left sided chest pain and sided face/arm numbness along c SOB that started around 2-3 am while he was sleeping. Continues to worsen. With associated eye blurriness, fast heart rate, N/V/D. Denies fevers, sore throat, cough, Abd pain, rashes, back pain, focal weakness or any other symptoms complaints or concerns at this time. Plan: Patient will be sent to have an EKG, labs, CT scan of brain, chest x-ray then he can go back to the waiting room to be evaluated in the ED. <LONNIE Hoover - Last Filed: 04/15/22 20:39> RME-20:35PM - 46yoM presenting to the ED c c/o of left sided chest pain and sided face/arm numbness along c SOB that started around 2-3 am while he was sleeping. Continues to worsen. With associated eye blurriness, fast heart rate, N/V/D. Denies fevers, sore throat, cough, Abd pain, rashes, back pain, focal weakness or any other symptoms complaints or concerns at this time. Plan: Patient will be sent to have an EKG, labs, CT scan of brain, chest x-ray then he can go back to the waiting room to be evaluated in the ED. 46-year-old male presents with multiple concerns. Labs and CT scan with x-rays ordered by provider in triage. Labs are unremarkable. Patient tested positive for COVID. Chest x-ray is negative, CT scan of head is negative. EKG is normal sinus. It is noted the patient does have a significantly awkward affect. Nurse reports that patient did drink a 6 pack of beer prior to arrival. NIH stroke scale is 0. Troponin is negative. Low to no likelihood of ACS. Symptoms could possibly be related to COVID-19. Plan of care is to discharge with supportive measures. <Loren Arreola NP - Last Filed: 04/15/22 22:50> Medical Decision Making Differential Diagnosis Differential Diagnoses: The differential diagnosis associated with the presentation includes <Loren Arreola NP - Last Filed: 04/15/22 22:50> CVA, ACS, COVID, influenza, RSV, intoxication <Loren Arreola NP - Last Filed: 04/15/22 22:50> Admission/Observation Consideration of admission/observation: Escalation of care including admission/observation considered <Loren Arreola NP - Last Filed: 04/15/22 22:50> If patient has significant findings with imaging, will consider admission <Loren Arreola NP - Last Filed: 04/15/22 22:50> Lab Data MDM Lab Attestation statement: I reviewed the patient's lab results. <Loren Arreola NP - Last Filed: 04/15/22 22:50> Result Diagrams: 04/15/22 20:49 04/15/22 20:49 <LONNIE Hoover - Last Filed: 04/15/22 20:39> Labs: Lab Results 04/15/22 04/15/22 04/15/22 Range/Units 20:49 20:49 20:49 WBC 6.7 (4.8-10.8) X10*3/uL RBC 5.05 (4.60-5.80) X10*6/uL Hgb 15.3 (14.0-18.0) g/dl Hct 45.3 (42.0-52.0) % MCV 89.7 (80.0-98.0) fL MCH 30.3 (27.0-33.0) pg MCHC 33.8 (31.0-36.0) g/dl RDW 12.9 (11.0-16.0) % Plt Count 350 (160-400) X10*3/uL MPV 9.3 L (9.4-12.4) fL Immature Gran % (Auto) 0.3 (0.0-0.4) % Neut % (Auto) 44.2 L (45-73) % Lymph % (Auto) 40.6 H (20-40) % Sunflower % (Auto) 12.9 H (2-11) % Eos % (Auto) 1.5 (0-4) % Baso % (Auto) 0.5 (0-2) % Lymph # (Auto) 2.7 (1.2-4.9) X10*3/uL Sunflower # (Auto) 0.9 (0.1-1.2) X10*3/uL Eos # (Auto) 0.1 (0.0-0.4) X10*3/uL Baso # (Auto) 0.0 (0.0-0.2) X10*3/uL Abs Immat Gran (auto) 0.02 (0.00-0.03) X10*3/uL Absolute Neuts (auto) 2.9 (2.0-8.3) x10*3/uL Absolute Nucleated RBC 0.000 (0.0-0.012) X10*3/uL Nucleated RBC % (auto) 0.0 (0.0-0.2) /100WBC PT 12.5 (10.0-13.1) SEC INR 1.1 (0.9-1.1) Sodium 139 (135-145) mmol/L Potassium 4.3 (3.3-5.1) mmol/L Chloride 104 (96-108) mmol/L Carbon Dioxide 24 (22-29) mmol/L Anion Gap 15 (12-20) BUN 9 (9-16) mg/dL Creatinine 0.97 (0.5-1.4) mg/dL Estim Creat Clear Calc 103.5 Estimated GFR > 60 Random Glucose 106 (60-115) mg/dL Calcium 9.8 (8.4-10.2) mg/dL Magnesium 2.3 (1.6-2.6) mg/dL Total Bilirubin 0.8 (0.0-1.0) mg/dL AST 29 (5-37) U/L ALT 44 H (0-40) U/L Alkaline Phosphatase 103 (39-117) U/L Troponin I High Sens (<3.5-35.0) ng/L Total Protein 7.8 (6.5-8.0) g/dL Albumin 4.5 (3.5-5.0) g/dL Influenza Type A (PCR) (Negative) Influenza Type B (PCR) (Negative) RSV RNA Qual (PCR) (Negative) SARS-CoV-2 RNA (RT-PCR) (Negative) 04/15/22 04/15/22 Range/Units 20:49 20:49 WBC (4.8-10.8) X10*3/uL RBC (4.60-5.80) X10*6/uL Hgb (14.0-18.0) g/dl Hct (42.0-52.0) % MCV (80.0-98.0) fL MCH (27.0-33.0) pg MCHC (31.0-36.0) g/dl RDW (11.0-16.0) % Plt Count (160-400) X10*3/uL MPV (9.4-12.4) fL Immature Gran % (Auto) (0.0-0.4) % Neut % (Auto) (45-73) % Lymph % (Auto) (20-40) % Sunflower % (Auto) (2-11) % Eos % (Auto) (0-4) % Baso % (Auto) (0-2) % Lymph # (Auto) (1.2-4.9) X10*3/uL Sunflower # (Auto) (0.1-1.2) X10*3/uL Eos # (Auto) (0.0-0.4) X10*3/uL Baso # (Auto) (0.0-0.2) X10*3/uL Abs Immat Gran (auto) (0.00-0.03) X10*3/uL Absolute Neuts (auto) (2.0-8.3) x10*3/uL Absolute Nucleated RBC (0.0-0.012) X10*3/uL Nucleated RBC % (auto) (0.0-0.2) /100WBC PT (10.0-13.1) SEC INR (0.9-1.1) Sodium (135-145) mmol/L Potassium (3.3-5.1) mmol/L Chloride (96-108) mmol/L Carbon Dioxide (22-29) mmol/L Anion Gap (12-20) BUN (9-16) mg/dL Creatinine (0.5-1.4) mg/dL Estim Creat Clear Calc Estimated GFR Random Glucose (60-115) mg/dL Calcium (8.4-10.2) mg/dL Magnesium (1.6-2.6) mg/dL Total Bilirubin (0.0-1.0) mg/dL AST (5-37) U/L ALT (0-40) U/L Alkaline Phosphatase (39-117) U/L Troponin I High Sens < 3.5 (<3.5-35.0) ng/L Total Protein (6.5-8.0) g/dL Albumin (3.5-5.0) g/dL Influenza Type A (PCR) NEGATIVE (Negative) Influenza Type B (PCR) NEGATIVE (Negative) RSV RNA Qual (PCR) NEGATIVE (Negative) SARS-CoV-2 RNA (RT-PCR) POSITIVE A (Negative) <LONNIE Hoover - Last Filed: 04/15/22 20:39> Lab Results 04/15/22 04/15/22 04/15/22 Range/Units 20:49 20:49 20:49 WBC 6.7 (4.8-10.8) X10*3/uL RBC 5.05 (4.60-5.80) X10*6/uL Hgb 15.3 (14.0-18.0) g/dl Hct 45.3 (42.0-52.0) % MCV 89.7 (80.0-98.0) fL MCH 30.3 (27.0-33.0) pg MCHC 33.8 (31.0-36.0) g/dl RDW 12.9 (11.0-16.0) % Plt Count 350 (160-400) X10*3/uL MPV 9.3 L (9.4-12.4) fL Immature Gran % (Auto) 0.3 (0.0-0.4) % Neut % (Auto) 44.2 L (45-73) % Lymph % (Auto) 40.6 H (20-40) % Sunflower % (Auto) 12.9 H (2-11) % Eos % (Auto) 1.5 (0-4) % Baso % (Auto) 0.5 (0-2) % Lymph # (Auto) 2.7 (1.2-4.9) X10*3/uL Sunflower # (Auto) 0.9 (0.1-1.2) X10*3/uL Eos # (Auto) 0.1 (0.0-0.4) X10*3/uL Baso # (Auto) 0.0 (0.0-0.2) X10*3/uL Abs Immat Gran (auto) 0.02 (0.00-0.03) X10*3/uL Absolute Neuts (auto) 2.9 (2.0-8.3) x10*3/uL Absolute Nucleated RBC 0.000 (0.0-0.012) X10*3/uL Nucleated RBC % (auto) 0.0 (0.0-0.2) /100WBC PT 12.5 (10.0-13.1) SEC INR 1.1 (0.9-1.1) Sodium 139 (135-145) mmol/L Potassium 4.3 (3.3-5.1) mmol/L Chloride 104 (96-108) mmol/L Carbon Dioxide 24 (22-29) mmol/L Anion Gap 15 (12-20) BUN 9 (9-16) mg/dL Creatinine 0.97 (0.5-1.4) mg/dL Estim Creat Clear Calc 103.5 Estimated GFR > 60 Random Glucose 106 (60-115) mg/dL Calcium 9.8 (8.4-10.2) mg/dL Magnesium 2.3 (1.6-2.6) mg/dL Total Bilirubin 0.8 (0.0-1.0) mg/dL AST 29 (5-37) U/L ALT 44 H (0-40) U/L Alkaline Phosphatase 103 (39-117) U/L Troponin I High Sens (<3.5-35.0) ng/L Total Protein 7.8 (6.5-8.0) g/dL Albumin 4.5 (3.5-5.0) g/dL Influenza Type A (PCR) (Negative) Influenza Type B (PCR) (Negative) RSV RNA Qual (PCR) (Negative) SARS-CoV-2 RNA (RT-PCR) (Negative) 04/15/22 04/15/22 Range/Units 20:49 20:49 WBC (4.8-10.8) X10*3/uL RBC (4.60-5.80) X10*6/uL Hgb (14.0-18.0) g/dl Hct (42.0-52.0) % MCV (80.0-98.0) fL MCH (27.0-33.0) pg MCHC (31.0-36.0) g/dl RDW (11.0-16.0) % Plt Count (160-400) X10*3/uL MPV (9.4-12.4) fL Immature Gran % (Auto) (0.0-0.4) % Neut % (Auto) (45-73) % Lymph % (Auto) (20-40) % Sunflower % (Auto) (2-11) % Eos % (Auto) (0-4) % Baso % (Auto) (0-2) % Lymph # (Auto) (1.2-4.9) X10*3/uL Sunflower # (Auto) (0.1-1.2) X10*3/uL Eos # (Auto) (0.0-0.4) X10*3/uL Baso # (Auto) (0.0-0.2) X10*3/uL Abs Immat Gran (auto) (0.00-0.03) X10*3/uL Absolute Neuts (auto) (2.0-8.3) x10*3/uL Absolute Nucleated RBC (0.0-0.012) X10*3/uL Nucleated RBC % (auto) (0.0-0.2) /100WBC PT (10.0-13.1) SEC INR (0.9-1.1) Sodium (135-145) mmol/L Potassium (3.3-5.1) mmol/L Chloride (96-108) mmol/L Carbon Dioxide (22-29) mmol/L Anion Gap (12-20) BUN (9-16) mg/dL Creatinine (0.5-1.4) mg/dL Estim Creat Clear Calc Estimated GFR Random Glucose (60-115) mg/dL Calcium (8.4-10.2) mg/dL Magnesium (1.6-2.6) mg/dL Total Bilirubin (0.0-1.0) mg/dL AST (5-37) U/L ALT (0-40) U/L Alkaline Phosphatase (39-117) U/L Troponin I High Sens < 3.5 (<3.5-35.0) ng/L Total Protein (6.5-8.0) g/dL Albumin (3.5-5.0) g/dL Influenza Type A (PCR) NEGATIVE (Negative) Influenza Type B (PCR) NEGATIVE (Negative) RSV RNA Qual (PCR) NEGATIVE (Negative) SARS-CoV-2 RNA (RT-PCR) POSITIVE A (Negative) <Loren Arreola NP - Last Filed: 04/15/22 22:50> Independent Interpretation I performed an independent interpretation of an: EKG, Plain X-Ray and CT Scan <Loren Arreola NP - Last Filed: 04/15/22 22:50> Interpretation: Vent. rate 89 BPM DE interval 112 ms QRS duration 88 ms QT/QTc 364/442 ms P-R-T axes 65 31 35 Normal sinus rhythm Normal ECG When compared with ECG of 25-AUG-2020 11:54, No significant change was found 15-APR-2022 20:38:11 <Loren Arreola NP - Last Filed: 04/15/22 22:50> Radiology Impression Discussion of test interpretation with radiology: I have reviewed the radiologist's reading. <Loren Arreola NP - Last Filed: 04/15/22 22:50> Radiologist Impression: FINDINGS: There is no evidence of acute intracranial hemorrhage or edematous territorial infarction. There is no abnormal attenuation within the brain parenchyma. Nayak-white matter differentiation is preserved. The ventricles are normal in size and configuration. No evidence for obstructive hydrocephalus. No abnormal mass effect or midline shift. No extra-axial fluid collections. No acute soft tissue or osseous abnormalities. Partial opacification of ethmoid air cells. The mastoids and middle ear cavities are clear. ? CT/CT head/brain wo IV con IMPRESSION: No evidence of acute intracranial hemorrhage or edematous territorial infarction. EXAMINATION: XR CHEST CLINICAL INFORMATION: Chest pain/paresthesia COMPARISON: 04/03/2021 TECHNIQUE: AP portable upright view of the chest FINDINGS: ?Lungs are clear. No consolidation, pneumothorax, or pleural effusion. Cardiac and mediastinal contours are normal. Pulmonary vasculature is unremarkable. Osseous structures are unremarkable. XR/XR chest 1V IMPRESSION: No acute cardiopulmonary findings <Loren Arreola NP - Last Filed: 04/15/22 22:50> External Record Review External record reviewed: Outpatient record and Prior outpatient labs <Loren Arreola NP - Last Filed: 04/15/22 22:50> Discharge Plan Discharge Clinical Impression: COVID <LONNIE Hoover - Last Filed: 04/15/22 20:39> Patient Disposition: Home, Self-Care <LONNIE Hoover - Last Filed: 04/15/22 20:39> Instructions: COVID-19 (Coronavirus Disease 2019) (ED) <LONNIE Hoover - Last Filed: 04/15/22 20:39> Additional Instructions: You were evaluated for multiple concerns. CT scan of head is negative for acute findings. EKG is normal. Chest x-ray is normal. You tested positive for COVID-19. Alternate Tylenol 650 mg every 6 hours and Motrin 600 mg every 6 hours as needed for pain and fever management. Consider taking these medications 3 hours apart so you have pain and fever management every 3 hours. Write down what time you take these medications to prevent accidental overdose. Thank you for choosing this emergency department for evaluation. Please follow-up with primary care physician as needed. Return to the emergency department for any new, concerning, or worsening symptoms. <LONNIE Hoover - Last Filed: 04/15/22 20:39> Prescriptions: No Action tramadol 50 mg tablet 50 mg PO Q6H PRN (Reason: pain) Qty: 20 0RF amoxicillin-pot clavulanate [Augmentin] 875-125 mg tablet 1 tab PO BID Qty: 14 0RF lidocaine [Lidoderm] 5 % adhesive patch,medicated 1 patch topical DAILY Qty: 15 0RF Rx Instructions: leave on most painful area for up to 12 hrs cyclobenzaprine 10 mg tablet 10 mg PO TID PRN (Reason: muscle spasm) Qty: 15 0RF naproxen 500 mg tablet 500 mg PO BID PRN (Reason: pain) Qty: 30 0RF <LONNIE Hoover - Last Filed: 04/15/22 20:39> Stand Alone Forms: Work/School Release <LONNIE Hoover - Last Filed: 04/15/22 20:39>
--- NOTE | 2022-04-15 20:37 | ECG_ITS ---
Test Reason : CHEST PAIN Blood Pressure : / mmHG Vent. Rate : 089 BPM Atrial Rate : 089 BPM P-R Int : 112 ms QRS Dur : 088 ms QT Int : 364 ms P-R-T Axes : 065 031 035 degrees QTc Int : 442 ms Normal sinus rhythm Normal ECG When compared with ECG of 25-AUG-2020 11:54, No significant change was found Referred By: Giana Hodge Electronically Signed By:Elton Ruelas
[2022-04-15 20:54] LABS: MANUAL DIFF FLAG NO
[2022-04-15 20:55] LABS: Basophils Percent Auto 0.5 % (0-2); Eosinophils Absolute Auto 0.1 X10*3/uL (0.0-0.4); Eosinophils Percent Auto 1.5 % (0-4); Hematocrit 45.3 % (42.0-52.0); Hemoglobin 15.3 g/dl (14.0-18.0); Imm Gran Abs Auto 0.02 X10*3/uL (0.00-0.03); Imm Gran Pct Auto 0.3 % (0.0-0.4); Lymphocytes Absolute Auto 2.7 X10*3/uL (1.2-4.9); Lymphocytes Percent Auto 40.6 % (20-40); Mean Corpuscular HGB Conc 33.8 g/dl (31.0-36.0); Mean Corpuscular Hemoglobin 30.3 pg (27.0-33.0); Mean Corpuscular Volume 89.7 fL (80.0-98.0); Mean Platelet Volume 9.3 fL (9.4-12.4); Monocytes Absolute Auto 0.9 X10*3/uL (0.1-1.2); Monocytes Percent Auto 12.9 % (2-11); Neutrophils Absolute Auto 2.9 x10*3/uL (2.0-8.3); Neutrophils Percent Auto 44.2 % (45-73); Platelet Count 350 X10*3/uL (160-400); Red Blood Count 5.05 X10*6/uL (4.60-5.80); Red Cell Distribution Width 12.9 % (11.0-16.0); White Blood Count 6.7 X10*3/uL (4.8-10.8)
[2022-04-15 21:00] LABS: INTERNATIONAL NORM RATIO 1.1 (0.9-1.1); Prothrombin Time 12.5 SEC (10.0-13.1)
--- NOTE | 2022-04-15 21:01 | ECG_ITS ---
Test Reason : REPEAT Blood Pressure : / mmHG Vent. Rate : 084 BPM Atrial Rate : 084 BPM P-R Int : 116 ms QRS Dur : 088 ms QT Int : 394 ms P-R-T Axes : 059 038 042 degrees QTc Int : 465 ms Normal sinus rhythm Normal ECG When compared with ECG of 15-APR-2022 20:38, No significant change was found Referred By: Generic ED Physician Electronically Signed By:Elton Ruelas
[2022-04-15 21:04] VITALS: BP 148/88; PULSE 83; RESP 15; O2SAT 96
[2022-04-15 21:11] LABS: Alanine Aminotransferase 44 U/L (0-40); Albumin Level 4.5 g/dL (3.5-5.0); Alkaline Phosphatase 103 U/L (39-117); Anion Gap 15 (12-20); Aspartate Amino Transferase 29 U/L (5-37); Bilirubin Total 0.8 mg/dL (0.0-1.0); Blood Urea Nitrogen 9 mg/dL (9-16); Calcium 9.8 mg/dL (8.4-10.2); Carbon Dioxide 24 mmol/L (22-29); Chloride 104 mmol/L (96-108); Creatinine Clr Calc Pharmacy 103.5; Estimated Glomerular Filt Rate > 60; Glucose Random 106 mg/dL (60-115); Magnesium 2.3 mg/dL (1.6-2.6); Potassium 4.3 mmol/L (3.3-5.1); Sodium 139 mmol/L (135-145); Total Protein 7.8 g/dL (6.5-8.0)
[2022-04-15 21:17] LABS: Troponin-I High Sensitivity < 3.5 ng/L (<3.5-35.0)
[2022-04-15 21:31] LABS: Influenza A PCR NEGATIVE (Negative); Influenza B PCR NEGATIVE (Negative); Resp Syncy Virus RNA Qual PCR NEGATIVE (Negative); SARS COV2 PCR INHOUSE POSITIVE (Negative)
--- NOTE | 2022-04-15 22:20 | PC.NURSE ---
pt reports to provider Loren MEMBRENO last known welltime of 2am 04/15/22 pt reports to this rn pt had about a 6pack of beer at around 1600 04/15/22. Loren MEMBRENO notified
[2022-04-15 22:51] VITALS: BP 121/78; PULSE 68; RESP 17; O2SAT 97
--- NOTE | 2022-04-15 23:17 | PC.NURSE ---
iv removed at time of discharge. pt ambulatory at this time. pt provided with discharge packet and work note. pt verbalized understanding of discharge plan
== END 2022-04-15 23:18 | disposition home or self-care (01) ==
PROVIDERS: Physician Assistant Medical; Emergency Provider Internal Medicine
DX: U07.1 COVID-19 (principal); R07.89 Other chest pain; F17.210 Nicotine dependence, cigarettes, uncomplicated; Z71.6 Tobacco abuse counseling; Z79.899 Other long term (current) drug therapy
CPT/HCPCS: 0241U; 70450; 71045; 80053; 83735; 84484; 85025; 85610; 93005; 99285

== ENCOUNTER 2022-07-02 10:16 | Emergency (ER) | payer OTHER, SELFPAY ==
[2022-07-02 10:23] VITALS: BP 120/93; PULSE 97; RESP 18; TEMP 36.4; O2SAT 97; BMI 27.9
[2022-07-02 11:28] VITALS: BP 137/79; PULSE 82; RESP 17; TEMP 36.6; O2SAT 98
--- NOTE | 2022-07-02 11:44 | ED.GENADULT ---
HPI - General Adult General Chief complaint: Back Pain/Injury Stated complaint: back inj Time Seen by Provider: 07/02/22 11:44 Source: patient Mode of arrival: ambulatory Limitations: no limitations History of Present Illness HPI narrative: Patient is a 47 year old assigned male at with no reported medical history presenting to the emergency department today with back pain. Patient states that he was working underneath a car yesterday and is now having back pain. Patient denies any dizziness, lightheadedness, abdominal pain, nausea, vomiting, fever, chills, blurry vision, double vision, loss of vision, chest pain, difficulty breathing, shortness of breath, night sweats, pain with urination, increased urinary frequency, increased urinary urgency, blood in his urine or stool, syncope or a near syncopal episode, recent trauma or falls, bowel incontinence, bladder incontinence, bowel retention, bladder retention, or any other complaints at this time. Onset (ago): day(s) (1) Location: back Radiation: non-radiation Severity: mild Severity scale (1-10): 3 Quality: aching and dull Pain Consistency: constant Relieving factors: none Exacerbating factors: none Associated symptoms: denies other symptoms Treatments prior to arrival: none Related Data Previous Rx's Medication Instructions Recorded tramadol 50 mg tablet 50 mg PO Q6H PRN pain #20 tabs 11/22/20 amoxicillin 875 mg-potassium 1 tab PO BID #14 tabs 12/06/20 clavulanate 125 mg tablet (Augmentin) cyclobenzaprine 10 mg tablet 10 mg PO TID PRN muscle spasm #15 04/03/21 tabs lidocaine 5 % topical patch 1 patch topical DAILY #15 ea 04/03/21 (Lidoderm) naproxen 500 mg tablet 500 mg PO BID PRN pain #30 tabs 04/03/21 cyclobenzaprine 5 mg tablet 5 mg PO TID PRN back pain 7 days 07/02/22 #21 tabs Allergies Allergy/AdvReac Type Severity Reaction Status Date / Time No Known Allergies Allergy Verified 04/15/22 20:38 [No Known Allergies*] Review of Systems Constitutional: Constitutional: Reports no additional constitutional complaints, Denies chills, Denies fever(s) and Denies night sweats Eyes: Eyes: Reports no additional eye complaints, Denies blurry vision, Denies change in vision, Denies diplopia, Denies eye discharge, Denies loss of vision and Denies eye pain ENT: Denies dizziness Cardiovascular: Cardiovascular: Reports no additional cardiovascular complaints, Denies chest pain, Denies lightheadedness, Denies Loss of Consciousness and Denies dyspnea Respiratory: Respiratory: Reports no additional respiratory complaints and Denies dyspnea Gastrointestinal: Gastrointestinal: Reports no additional gastrointestinal complaints, Denies abdominal pain, Denies melena, Denies hematochezia, Denies change in bowel habits and Denies change in stool character Genitourinary: Genitourinary: Reports no additional male genitourinary complaints, Denies hematuria, Denies oliguria, Denies difficulty urinating, Denies dysuria, Denies urinary frequency, Denies urinary hesitancy, Denies urinary incontinence and Denies urinary urgency Musculoskeletal: Musculoskeletal: Reports no additional musculoskeletal complaints, Reports back pain, Denies numbness and Denies tingling Neurologic: Denies dizziness, Denies loss of vision, Denies numbness and Denies tingling Psychiatric: Psychiatric: Reports no additional psychiatric complaints Endocrine: Endocrine: Reports no additional endocrine complaints Hematologic/Lymphatic: Hematologic/Lymphatic: Reports no additional hematologic/lymphatic complaints Allergic/Immunologic: Allergic/Immunologic: Reports no additional allergic/immunologic complaints [facility] Past Medical History Attestation statement: The following information was validated with the patient. Source: old records reviewed and nursing notes reviewed Medical History Nonalcoholic fatty liver disease without nonalcoholic steatohepatitis (JULIAN) Surgical History H/O hernia repair Family History Family History Mother Diabetes Social History Social History Household Members: Spouse Alcohol intake: never Patient Tobacco Use Status: Current everyday Tobacco user Tobacco use type: Cigarette Substance Use Type: Marijuana Advance Directives: No Advance Directives Information Provided: Yes Physical Exam ED Vital Signs: Vital Signs - 24 hr 07/02/22 10:23 07/02/22 11:28 Temperature 97.5 F 97.8 F Pulse Rate 97 82 Respiratory Rate 18 17 Blood Pressure 120/93 H 137/79 Pulse Oximetry 97 98 Oxygen Delivery Method Room Air Room Air BMI result Body Mass Index 27.9 Const General: cooperative, no acute distress, alert and awake Nutritional Appearance: well nourished Orientation/consciousness: patient oriented x3 Limitations: no limitations HENMT Head: Yes normal to inspection and Yes atraumatic Ears: hearing grossly normal bilaterally and external ears normal General nose exam: Normal external nose present, no nasal discharge noted and no epistaxis Face and sinus: Yes normal facial exam, No abrasion and No laceration Mouth: Normal oral and palatal mucosa present, no drooling and no muffled voice Eyes General: appearance normal, both eyes and all related structures Periorbital: periorbital findings normal Eyelids: Yes eyelids normal Conjunctivae: conjunctivae normal Pupils: Equal, round and reactive pupils present EOM: EOMs intact bilaterally Neck Neck: Yes normal visual inspection, Yes full ROM and Yes no lymphadenopathy Chest Chest palpation & inspection: normal inspection of the chest Resp Effort & Inspection: normal respiratory effort and able to speak in complete sentences Auscultation: clear to auscultation bilaterally Cardio Rate: regular rate Rhythm: regular rhythm GI Inspection: Yes normal to inspection Palpation (GI): Soft to palpation, not firm, nontender and no guarding General: Yes no CVA tenderness Back/Spine/Pelvis Back: no CVA tenderness Cervical Spine: normal cervical lordosis and cervical ROM normal Thoracic/Lumbar Spine: thoracic and lumbar spine normal to inspection and thoraco-lumbar ROM normal Pelvis: no pain with anterior-posterior compression Neuro General: patient oriented x3 and moves all extremities Cranial nerves: Yes Equal, round and reactive pupils present Cognition (Neuro): normal cognition Motor exam (neuro): 5/5 motor strength present throughout Sensory Exam: Normal double simultaneous stimulation for sensation Coordination: [id number] test normal Extrem General: Yes normal to inspection, Yes full ROM and Yes capillary refill normal Psych Appearance: grossly normal Mental Status: mental status grossly normal Affect: normal affect Attitude: cooperative Thought process: Normal thought process present Thought content: Normal thought content present Insight: Good insight present (Psych) Medications Administered Discontinued Medications Generic Name Dose Route Start Last Admin Trade Name Freq PRN Reason Stop Dose Admin Cyclobenzaprine HCl 5 mg 07/02/22 11:58 07/02/22 12:26 Cyclobenzaprine Hcl 5 Mg Tablet PO 07/02/22 11:59 5 mg ONCE ONE Administration Ketorolac Tromethamine 15 mg 07/02/22 11:58 07/02/22 12:26 Ketorolac Tromethamine 15 Mg/Ml Vial IM 07/02/22 11:59 15 mg ONCE ONE Administration Medical Decision Making Medical Decision Making [facility] Narrative: Patient is a 47 year old assigned male at with no reported medical history presenting to the emergency department today with back pain. Patient's physical exam was unremarkable. I explained my physical exam findings to the patient. I answered all questions asked by the patient. Patient received PO Flexeril and IM Toradol which he stated helped his symptoms significantly. I stressed the importance of the patient taking his medication as prescribed. I stressed the importance of the patient following up with his primary care provider. I stressed the importance of the patient returning to the emergency department immediately if his symptoms were to worsen or if he were to develop any dizziness, shortness of breath, difficulty breathing, chest pain, blurry vision, loss of vision, nausea, vomiting, abdominal pain, fever, chills, back pain, or any other complaints. Patient verbalized agreement and understanding with this treatment plan and discharge. Differential Diagnosis Differential Diagnoses: The differential diagnosis associated with the presentation includes low back pain Discharge Plan Discharge Clinical Impression: Back pain Patient Disposition: Home, Self-Care Instructions: Back Pain (ED) Additional Instructions: Follow up with your primary care provider. Return to the emergency department immediately if your symptoms worsen or if you develop any dizziness, shortness of breath, difficulty breathing, chest pain, blurry vision, loss of vision, nausea, vomiting, abdominal pain, fever, chills, back pain, or any other complaints. Prescriptions: New cyclobenzaprine 5 mg tablet 5 mg PO TID PRN (Reason: back pain) 7 Days Qty: 21 0RF No Action tramadol 50 mg tablet 50 mg PO Q6H PRN (Reason: pain) Qty: 20 0RF amoxicillin-pot clavulanate [Augmentin] 875-125 mg tablet 1 tab PO BID Qty: 14 0RF lidocaine [Lidoderm] 5 % adhesive patch,medicated 1 patch topical DAILY Qty: 15 0RF Rx Instructions: leave on most painful area for up to 12 hrs cyclobenzaprine 10 mg tablet 10 mg PO TID PRN (Reason: muscle spasm) Qty: 15 0RF naproxen 500 mg tablet 500 mg PO BID PRN (Reason: pain) Qty: 30 0RF Referrals: [facility] [Provider Group] (Call to establish and follow up with a primary care provider. If you already have a primary care provider, please follow up with them.) [facility] Primary Care, Sree [Provider Group] (Call to establish and follow up with a primary care provider. If you already have a primary care provider, please follow up with them.) [facility] Primary CareCynthia [Provider Group] (Call to establish and follow up with a primary care provider. If you already have a primary care provider, please follow up with them.) Stand Alone Forms: Work/School Release Interventions: ED Discharge Assessment Last Done: 07/02/22 12:33 Discharge Date/Time: 07/02/22 12:34 Print Language: Japanese
[2022-07-02] MEDS: Ketorolac Tromethamine 15 MG/ML VIAL IM (12:26)
[2022-07-02] MEDS: Cyclobenzaprine HCl 5 MG TABLET PO (12:26)
== END 2022-07-02 12:34 | disposition home or self-care (01) ==
PROVIDERS: Emergency Provider Student in an Organized Health Care Education/Training Program
DX: M54.50 Low back pain, unspecified (principal); F17.210 Nicotine dependence, cigarettes, uncomplicated; Z71.6 Tobacco abuse counseling; Z79.899 Other long term (current) drug therapy
CPT/HCPCS: 96372; 99283; 99284; J1885

== ENCOUNTER 2022-09-13 09:01 | Emergency (ER) | payer OTHER, SELFPAY ==
--- NOTE | ~2022-09-13 | XR_ITS ---
EXAMINATION: XR SHOULDER LEFT XR ELBOW LEFT CLINICAL INFORMATION: Left shoulder and elbow pain. COMPARISON: None TECHNIQUE: Left shoulder, 4 views Left elbow, 3 views FINDINGS: Left shoulder: No significant radiographic findings. Alignment is normal at the acromioclavicular and glenohumeral joints. Humeral head is well-positioned over the intact glenoid. Glenohumeral joint space is maintained. There are no large osteophytes projecting from the undersurface of the acromioclavicular joint. A small enthesophyte projects from the lateral acromion. The acromion has type 2 morphology. The subacromial space is maintained and there is no evidence of calcific tendinopathy. The visualized left upper lung is normal. Left elbow: Alignment is normal. Bones, joints and soft tissues have a normal appearance. No arthritic deformity, fracture or subluxation. No elbow joint effusion. XR/XR shoulder LT min 2V IMPRESSION: No acute or significant radiographic abnormalities at either the left shoulder and elbow. No fracture or subluxation.
--- NOTE | ~2022-09-13 | XR_ITS ---
EXAMINATION: XR SHOULDER LEFT XR ELBOW LEFT CLINICAL INFORMATION: Left shoulder and elbow pain. COMPARISON: None TECHNIQUE: Left shoulder, 4 views Left elbow, 3 views FINDINGS: Left shoulder: No significant radiographic findings. Alignment is normal at the acromioclavicular and glenohumeral joints. Humeral head is well-positioned over the intact glenoid. Glenohumeral joint space is maintained. There are no large osteophytes projecting from the undersurface of the acromioclavicular joint. A small enthesophyte projects from the lateral acromion. The acromion has type 2 morphology. The subacromial space is maintained and there is no evidence of calcific tendinopathy. The visualized left upper lung is normal. Left elbow: Alignment is normal. Bones, joints and soft tissues have a normal appearance. No arthritic deformity, fracture or subluxation. No elbow joint effusion. XR/XR elbow LT min 3V IMPRESSION: No acute or significant radiographic abnormalities at either the left shoulder and elbow. No fracture or subluxation.
[2022-09-13 09:06] VITALS: BP 155/98; PULSE 98; RESP 18; TEMP 36.7; O2SAT 98; BMI 27.8
--- NOTE | 2022-09-13 09:34 | ED.EXTPRO ---
HPI - Extremity Problem General Chief complaint: Extremity Injury, Upper Stated complaint: L arm pain Time Seen by Provider: 09/13/22 09:24 Source: patient and RN notes reviewed Mode of arrival: ambulatory Limitations: no limitations History of Present Illness HPI Narrative: This is a 47-year-old male, with no known past medical history, who presents the emergency department for acute on chronic left shoulder pain x1 week. Patient reports that in March 2022 he fell onto his left shoulder causing him some pain, he has been followed by [facility] orthopaedics where he has had imaging, nerve conduction studies, and has been followed by Physical therapy. He states initially the physical therapy has been helping however over the last week his left shoulder pain has been increasingly getting worse. He also is taking another medication to help with his pain which has since run out over the last week and a half. He has a follow-up appointment with his primary care physician next week. 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 The pain is achy, and radiates down into his left elbow. He also some have some numbness and tingling from his left elbow into his fingers. He states that he has had this intermittently the last couple of months. He denies any chest pain, shortness of breath, fevers, chills, nausea, vomiting or diarrhea. No other complaints or concerns at this time. MD Complaint: extremity pain and joint pain Pain Consistency: constant Location: left Quality: aching Radiation: distal Relieving factors: immobilization and medication Exacerbating factors: range of motion and palpation Associated symptoms: denies other symptoms Related Data Previous Rx's Medication Instructions Recorded tramadol 50 mg tablet 50 mg PO Q6H PRN pain #20 tabs 11/22/20 amoxicillin 875 mg-potassium 1 tab PO BID #14 tabs 12/06/20 clavulanate 125 mg tablet (Augmentin) cyclobenzaprine 10 mg tablet 10 mg PO TID PRN muscle spasm #15 04/03/21 tabs lidocaine 5 % topical patch 1 patch topical DAILY #15 ea 04/03/21 (Lidoderm) naproxen 500 mg tablet 500 mg PO BID PRN pain #30 tabs 04/03/21 cyclobenzaprine 5 mg tablet 5 mg PO TID PRN back pain 7 days 07/02/22 #21 tabs Allergies Allergy/AdvReac Type Severity Reaction Status Date / Time No Known Allergies Allergy Verified 09/13/22 09:06 [No Known Allergies*] Review of Systems Review of Systems: Constitutional: No Weight loss, No Fever, No Chills, No Night Sweats, No Fatigue, No Malaise ENT/Mouth: No Hearing loss, No Ear Pain, No Nasal Congestion, No Sinus Pain, No Hoarseness, No sore throat, No Rhinorrhea, No Swallowing Difficulty Eyes: No Eye Pain, No Swelling, No Redness, No Foreign Body, No Discharge, No Vision Changes Cardiovascular: No Chest Pain, No SOB, No Dyspnea on Exertion, No Orthopnea, No Edema, No Palpitations Respiratory: No Cough, No Sputum, No Wheezing, No Smoke Exposure, No Dyspnea Gastrointestinal: No Nausea, No Vomiting, No Diarrhea, No Constipation, No Abdominal pain, No Hematochezia, No Melena Genitourinary: No irregular bleeding, No Dysuria, No Urinary Frequency, No Hematuria, No Urinary Incontinence/retention, No Urgency, No Flank Pain, No Urinary Flow Changes, No Hesitancy Musculoskeletal: +joint pain, No Myalgias, No Joint Swelling Skin: No Skin Lesions, No rash Neuro: No Weakness, + Numbness, + Paresthesias, No Loss of Consciousness, No Dizziness, No Headache Psych: No Anxiety/Panic, No Depression, No SI/HI/AH/VH, No Social Issues, Heme/Lymph: No Bruising, No Bleeding,No Lymphadenopathy Endocrine: No Polyuria, No Polydipsia, No Temperature Intolerance [facility] Past Medical History Medical History Nonalcoholic fatty liver disease without nonalcoholic steatohepatitis (JULIAN) Surgical History H/O hernia repair Family History Family History Mother Diabetes Social History Social History Household Members: Spouse Alcohol intake: never Patient Tobacco Use Status: Current everyday Tobacco user Tobacco use type: Cigarette Substance Use Type: Marijuana Advance Directives: No Physical Exam Vital Signs: Vital Signs: Last Vital Signs Temp 98.1 F 09/13/22 09:06 Pulse 98 09/13/22 09:06 Resp 18 09/13/22 09:06 BP 155/98 H 09/13/22 09:06 Pulse Ox 98 09/13/22 09:06 O2 Del Method Room Air 09/13/22 09:06 BMI result Body Mass Index 27.8 General: Awake, alert, and oriented X3. No acute distress. HEENT: Normal inspection CVS: Normal heart rate and rhythm. Pulses normal. Respiratory: No respiratory distress Skin: Warm, dry, no rashes noted to exposed skin. Normal skin color. Normal skin turgor. Extremities: Left shoulder with no obvious bony deformities or swelling. Patient has tenderness to palpation throughout the entire left shoulder, more pronounced along the left AC joint. Able to abduct to about 100?, able to forward flex to about 90 degrees, positive empty can test. Tenderness to palpation along the medial epicondyle. Neuro: Oriented X 3. No motor deficit. No sensory deficit. Course Reevaluation(s) Reevaluation #1: Patient re-evaluated, reporting some pain relief after receiving Toradol 30 mg IM. Shoulder and elbow x-ray reviewed with no acute findings. Patient received phone call from primary care physician who informed him he will prescribe him a pain medications as well as work note. Patient given return precautions. Patient understands and agrees with plan. Patient stable for discharge. Time: 10:52 Medications Administered Discontinued Medications Generic Name Dose Route Start Last Admin Trade Name Freq PRN Reason Stop Dose Admin Ketorolac Tromethamine 30 mg 09/13/22 09:34 09/13/22 10:01 Ketorolac Tromethamine 30 Mg/Ml Vial IM 09/13/22 09:35 30 mg ONCE ONE Administration Medical Decision Making Medical Decision Making [facility] Narrative: 47-year-old male, with no significant past medical history presenting to the emergency department for evaluation of acute on chronic left shoulder pain for the last week. No new trauma or injury however given tenderness to palpation along the left AC joint and entire left shoulder, and that we have not had any imaging performed at this hospital we will repeat left shoulder x-rays, left elbow x-ray also ordered. Patient is mildly hypertensive at 155/98 likely due to pain. Plan: Toradol 30 mg IM, left shoulder x-ray, left elbow x-ray Differential Diagnosis Differential Diagnoses: The differential diagnosis associated with the presentation includes Left AC joint separation, arthritis, ligamentous injury, osteoarthritis, fracture Radiology Impression Discussion of test interpretation with radiology: I have reviewed the radiologist's reading. Radiologist Impression: EXAMINATION: XR SHOULDER LEFT XR ELBOW LEFT CLINICAL INFORMATION: Left shoulder and elbow pain.? COMPARISON: None? TECHNIQUE: Left shoulder, 4 views Left elbow, 3 views? FINDINGS: Left shoulder: No significant radiographic findings. Alignment is normal at the acromioclavicular and glenohumeral joints. Humeral head is well-positioned over the intact glenoid. Glenohumeral joint space is maintained. There are no large osteophytes projecting from the undersurface of the acromioclavicular joint. A small enthesophyte projects from the lateral acromion. The acromion has type 2 morphology. The subacromial space is maintained and there is no evidence of calcific tendinopathy. The visualized left upper lung is normal. Left elbow: Alignment is normal. Bones, joints and soft tissues have a normal appearance. No arthritic deformity, fracture or subluxation. No elbow joint effusion. XR/XR shoulder LT min 2V IMPRESSION: No acute or significant radiographic abnormalities at either the left shoulder and elbow. No fracture or subluxation.? ? Dictated By: Brandan Rivas MD EXAMINATION: XR SHOULDER LEFT XR ELBOW LEFT CLINICAL INFORMATION: Left shoulder and elbow pain.? COMPARISON: None? TECHNIQUE: Left shoulder, 4 views Left elbow, 3 views? FINDINGS: Left shoulder: No significant radiographic findings. Alignment is normal at the acromioclavicular and glenohumeral joints. Humeral head is well-positioned over the intact glenoid. Glenohumeral joint space is maintained. There are no large osteophytes projecting from the undersurface of the acromioclavicular joint. A small enthesophyte projects from the lateral acromion. The acromion has type 2 morphology. The subacromial space is maintained and there is no evidence of calcific tendinopathy. The visualized left upper lung is normal. Left elbow: Alignment is normal. Bones, joints and soft tissues have a normal appearance. No arthritic deformity, fracture or subluxation. No elbow joint effusion. XR/XR elbow LT min 3V IMPRESSION: No acute or significant radiographic abnormalities at either the left shoulder and elbow. No fracture or subluxation.? ? Dictated By: Brandan Rivas MD Discharge Plan Discharge Clinical Impression: Chronic shoulder pain, Elbow pain, left Patient Disposition: Home, Self-Care Instructions: Shoulder Pain (ED), Arm Pain (ED) Additional Instructions: Your x-rays performed today showed no broken bones. We had given you Toradol in the department today. Please follow-up with your primary care physician upon leaving the emergency department today. Your primary care physician had informed you that they will prescribe you medications to treat your pain as well as a work note. If any new or worsening symptoms occur, including but not limited to chest pain, shortness breath, headaches, visual changes, weakness, please return for re-evaluation. Prescriptions: No Action tramadol 50 mg tablet 50 mg PO Q6H PRN (Reason: pain) Qty: 20 0RF amoxicillin-pot clavulanate [Augmentin] 875-125 mg tablet 1 tab PO BID Qty: 14 0RF lidocaine [Lidoderm] 5 % adhesive patch,medicated 1 patch topical DAILY Qty: 15 0RF Rx Instructions: leave on most painful area for up to 12 hrs cyclobenzaprine 10 mg tablet 10 mg PO TID PRN (Reason: muscle spasm) Qty: 15 0RF naproxen 500 mg tablet 500 mg PO BID PRN (Reason: pain) Qty: 30 0RF cyclobenzaprine 5 mg tablet 5 mg PO TID PRN (Reason: back pain) 7 Days Qty: 21 0RF
[2022-09-13] MEDS: Ketorolac Tromethamine 30 MG/ML VIAL IM (10:01)
--- NOTE | 2022-09-13 10:03 | PC.NURSE ---
pt medicated per order
== END 2022-09-13 11:08 | disposition home or self-care (01) ==
PROVIDERS: Emergency Provider Emergency Medicine
DX: G89.29 Other chronic pain (principal); M25.512 Pain in left shoulder; M25.522 Pain in left elbow; Z79.899 Other long term (current) drug therapy
CPT/HCPCS: 73030; 73080; 96372; 99283; 99284; J1885